=== PATIENT | female | born 1975 | race Two or more races ===

== ENCOUNTER 2020-11-06 05:30 | Day surgery (SDC) | payer OTHER ==
[~2020-11-06] VITALS: Ht 162.6 cm; Wt 113.4 kg
[2020-11-06] VITALS (14 sets, daily range): BP systolic 113–151; BP diastolic 72–98
[~2020-11-06 05:30] MED LIST: HYDROCODON-ACE1 EA13 ORAL; PENICILLIN V P500 MG PO; VITAMIN C500 M1 ORAL; VITAMIN D325 MC1 PO; ZINC50 M2 ORAL
[2020-11-06] MEDS ORDERED: ceFAZolin 1gm IVPB IVPB ONE ×2 (06:00)
[2020-11-06] MEDS ORDERED: celeBREX 200mg Cap **SURGERY PATIENTS ONLY ORAL ONE (06:00)
[2020-11-06] MEDS ORDERED: oxyCONTIN 20mg tab ORAL ONE (06:00)
[2020-11-06] MEDS ORDERED: fentaNYL 100 mcg/2 mL IV ONE (07:04)
[2020-11-06] MEDS ORDERED: Lidocaine 1% MPF 10mg/ml 5ml ONE (07:04)
[2020-11-06] MEDS ORDERED: Midazolam 2mg/2ml Inj ONE (07:04)
--- NOTE | 2020-11-06 07:21 | Anethesia Preoperative Eval ---
Anesthesia Pre-op PMH/ROS General Date of Evaluation: Nov 06, 2020 Time of Evaluation: 07:17 Anesthesiologist: Jason ASA Score: ASA 2 Mallampati Score Class I : Soft palate, uvula, fauces, pillars visible Class II: Soft palate, uvula, fauces visible Class III: Soft palate, base of uvula visible Class IV: Only hard plate visible Mallampati Classification: Class III Surgeon: Rivera Diagnosis: R knee pain Surgical Procedure: R knee scope Anesthesia History: none Family History: no anesthesia problems Allergies: Coded Allergies: No Known Allergies (Unverified , 11/06/20) Medications: see eMAR Patient NPO?: Yes Past Medical History Cardiovascular: Denies: HTN, CAD, MT, valve dz, arrhythmia, other Pulmonary: Reports: OZ; Denies: asthma, COPD, other Gastrointestinal/Genitourinary: Reports: GERD Neurologic/Psychiatric: Denies: dementia, CVA, depression/anxiety, TIA, other Endocrine: Denies: DM, hypothyroidism, steroids, other HEENT: Denies: cataract (L), cataract (R), glaucoma, [place] (L), [place] (R), other Hematology/Immune: Denies: anemia, DVT, bleeding disorder, other Musculoskeletal/Integumentary: Denies: OA, RA, DJD, DDD, edema, other Other: obesity PMH Narrative: as above PSxH Narrative: , R ankle scope Anesthesia Pre-op Phys. Exam Physician Exam Last Vital Signs Date Time Temp Pulse Resp B/P (MAP) Pulse Ox O2 Delivery O2 Flow Rate FiO2 11/06/20 06:08 Room Air 11/06/20 06:07 97.7 73 18 120/73 98 Constitutional: NAD Neurologic: CN 2-12 intact Cardiovascular: RRR, no M/R/G Respiratory: CTA Gastrointestinal: other - obesity Airway Exam Mallampati Score: Class III MO: limited Neck: short ROM: limited Teeth: intact Dentures: no upper, no lower Anesthesia Pre-op A/P Labs see chart Urine Test Test 11/06/20 05:40 Urine HCG, Qualitative Negative (NEGATIVE) Studies Pre-op Studies: EKG - SR Risk Assessment & Plan Assessment: ASA 2 Plan: GA with LMA Status Change Before Surgery: No Pre-Antibiotics Drug: Ancef 1gr Given Within 1 Hr of Incision: Yes Time Given: 08:10 Rayray Gomez MD Nov 06, 2020 07:21
[2020-11-06] MEDS ORDERED: Kenalog-40 1ml Vial ONE (07:29)
[2020-11-06] MEDS ORDERED: Ketorolac 30mg Inj ONE (07:29)
[2020-11-06] MEDS ORDERED: Lidocaine 1%/ 10mg/ml/EPI 0.01mg/ml 20ml INJ ONE (07:30)
[2020-11-06] MEDS ORDERED: Duramorph PF 5mg/10ml amp ONE (07:30)
[2020-11-06] MEDS ORDERED: LR 1000ml ONE (07:30)
[2020-11-06] MEDS ORDERED: NS Irrig 3000ml IRRIG ONE (07:30)
[2020-11-06] MEDS ORDERED: Bupivacaine 0.25% Inj 30ml INJ ONE (07:30)
--- NOTE | 2020-11-06 07:34 | Pre-Procedure Note/Attestation ---
Pre-Procedure Note/Attestation Complete Prior to Procedure Planned Procedure: right Procedure Narrative: knee arthroscopy, possible synovectomy, chondroplasty, menisectomy Indications for Procedure Pre-Operative Diagnosis: right knee internal derangment Attestation I attest that I discussed the nature of the procedure; its benefits; risks and complications; and alternatives (and the risks and benefits of such alternatives), prior to the procedure, with the patient (or the patient's legal desk representative). I attest that, if there was a reasonable possibility of needing a blood transfusion, the patient (or the patient's legal desk representative) was given the [facility] standardized written summary, pursuant to the Dioni Dianne Blood Safety Act ([place] Health and Safety Code # 1645, as amended). I attest that I re-evaluated the patient just prior to the surgery and that there has been no change in the patient's H&P, except as documented below: Johnathan Stafford MD Nov 06, 2020 07:34
--- NOTE | 2020-11-06 07:34 | Operative Note - PDOC ---
Operative Note Operative Note Pre-op Diagnosis: right knee internal derangment Procedure: see op report Post-op Diagnosis: same as pre-op plus Operative Findings: consistent w/pre-op dx studies Anesthesia: regional Specimen: none Complications: none Condition: stable Estimated Blood Loss: none Implant(s) used?: No Johnathan Stafford MD Nov 06, 2020 07:34
[2020-11-06] MEDS ORDERED: HYDROcodone/Acetamin 5/325 tab ORAL PRN (07:45)
[2020-11-06] MEDS ORDERED: Tylenol #3 tab (300mg/30mg) ORAL PRN (07:45)
[2020-11-06] MEDS ORDERED: D5 1/2NS 1,000 ML IV SCH (07:45)
[2020-11-06] MEDS ORDERED: HYDROmorphone 1mg/ml Carpuject SUBQ PRN (07:45)
[2020-11-06] MEDS ORDERED: Metoclopramide 10mg/2ml Inj IVP PRN (08:15)
[2020-11-06] MEDS ORDERED: DiphenhydrAMINE 50mg/ml Inj IVP PRN (08:15)
[2020-11-06] MEDS ORDERED: LR 1000ml 1,000 ML IVLG SCH (08:15)
[2020-11-06] MEDS ORDERED: Meperidine 25mg/1ml Inj (FOR RIGORS ONLY) IV PRN (08:15)
[2020-11-06] MEDS ORDERED: Ketorolac 30mg Inj IV PRN (08:15)
--- NOTE | 2020-11-06 08:31 | Immediate Post-Op Evaluation ---
Immediate Post-Op Evalulation Immediate Post-Op Evalulation Procedure: R knee arthroscopy, meniscectomy Date of Evaluation: Nov 06, 2020 Time of Evaluation: 08:30 IV Fluids: 600 Blood Products: none Estimated Blood Loss: min Urinary Output: none Blood Pressure Systolic: 138 Blood Pressure Diastolic: 76 Pulse Rate: 82 Respiratory Rate: 20 O2 Sat by Pulse Oximetry: 99 Temperature (Fahrenheit): 97.8 Pain Score (1-10): 1 Nausea: No Vomiting: No Complications none Patient Status: reacts, patent, none Hydration Status: adequate Rayray Gomez MD Nov 06, 2020 08:31
--- NOTE | 2020-11-06 09:58 | 48 Hour Post Anesthesia Eval ---
Post Anesthesia Evaluation Procedure: R knee arthroscopy, meniscectomy Date of Evaluation: Nov 06, 2020 Time of Evaluation: 09:56 Blood Pressure Systolic: 126 0: 72 Pulse Rate: 78 Respiratory Rate: 22 Temperature (Fahrenheit): 97.8 O2 Sat by Pulse Oximetry: 98 Airway: patent Nausea: No Vomiting: No Pain Intensity: 1 Hydration Status: adequate Cardiopulmonary Status: stable Mental Status/LOC: patient returned to baseline Follow-up Care/Observations: n/a Post-Anesthesia Complications: none Follow-up care needed: ready to discharge Rayray Gomez MD Nov 06, 2020 09:58
--- NOTE | 2020-11-06 10:45 | Operative Note - Dictated ---
DATE OF OPERATION: 11/06/2020 PREOPERATIVE DIAGNOSIS: Internal derangement, right knee. POSTOPERATIVE DIAGNOSES: 1. Right knee lateral meniscus tear. 2. Right knee grade 1 chondral damage, lateral tibial plateau. 3. Grade 2 chondral damage medial patellar facet. 4. Hypertrophic synovial tissue medial, lateral, and patellofemoral compartment. PROCEDURES: 1. Right knee diagnostic arthroscopy and partial lateral meniscectomy. 2. Synovectomy medial, lateral, patellofemoral compartment. 3. Gentle chondroplasty patellofemoral compartment. SURGEON: Johnathan Stafford MD. ANESTHESIA: MAC with local. INDICATION FOR PROCEDURE: The patient is a pleasant 45-year-old female, who has had progressive right knee pain. Failed conservative treatment. She elected to undergo right knee diagnostic arthroscopy, possible synovectomy, meniscectomy with chondroplasty based on intraoperative findings. Risks, limitations, expectations, and complications of the procedure were discussed in detail. All questions addressed. DESCRIPTION OF PROCEDURE: After informed consent was obtained, the patient was brought into operating room and placed under general anesthesia. Right leg was prepped and draped in a sterile manner. Time-out was performed. Inferolateral stab incision was then made. Trocar was introduced into the knee joint. There was hypertrophic synovial tissue making visualization somewhat difficult patellofemoral compartment, medial gutter. There was a medial plica. Medial gutter was free of any loose bodies. Medial compartment was entered. Medial working portal was established. The medial meniscus was probed, noted to be intact. No chondral damage. Medial compartment, hypertrophic ligamentum mucosum and synovial tissue making visualization, intercondylar notch and lateral compartment difficult. Medial working portal was established. Synovectomy was then medial compartment extending intercondylar notch and lateral compartment. The ACL was probed, noted to be intact. Lateral compartment was entered. There was grade 1 chondral damage in the posterior lateral tibial plateau with fraying of the middle body of the meniscus. Partial meniscectomy was performed using a shaver. Once this was done, the camera was positioned in the patellofemoral compartment. Further synovectomy and excision of medial plica was performed to better visualize the patellofemoral compartment. Once that was done, grade 2 chondral damage and medial patellar facet was identified. A chondroplasty was performed. Instruments removed. Portal site was closed with 3-0 Monocryl sutures. Steri-Strips and a sterile dressing were applied. ESTIMATED BLOOD LOSS: None. COMPLICATIONS: None. SPECIMENS: None. IMPLANTS: None. Johnathan Stafford M.D. DR: YANA JOB#: [id number] CC:
== END 2020-11-06 10:10 | disposition home or self-care (01) ==
LOC: SUR 05:30
DX: S83.281A Other tear of lateral meniscus, current injury, right knee, initial encounter (principal); M67.261 Synovial hypertrophy, not elsewhere classified, right lower leg; X58.XXXA Exposure to other specified factors, initial encounter; Y92.9 Unspecified place or not applicable; G47.33 Obstructive sleep apnea (adult) (pediatric); K21.9 Gastro-esophageal reflux disease without esophagitis; E66.9 Obesity, unspecified; Z68.41 Body mass index [BMI] 40.0-44.9, adult
CPT/HCPCS: 29876; 29881; 81025; 94003; J0690; J1885; J2250; J2405; J2704; J3010; J3301; J3490; J7120; U0004; 94150